=== PATIENT | male | born 1950 | race Caucasian/White ===

== ENCOUNTER 2017-05-09 10:10 | Emergency (ER) | payer OTHER ==
[2017-05-09 11:52] LABS: Basophils % (Auto) 0.2 % (0.0-1.8); Eosinophils % (Auto) 0.3 % (0.0-4.3); Hematocrit 47.6 % (35.5-45.6); Hemoglobin 15.4 gm/dl (11.8-15.2); Mean Corpuscular HGB Conc 32 % (32-34); Mean Corpuscular Hemoglobin 28 pg (28-32); Mean Corpuscular Volume 86 fl (84-94); Platelet Count 162 K/mm3 (140-440); Red Blood Count 5.55 M/mm3 (3.65-5.03); White Blood Count 7.9 K/mm3 (4.5-11.0)
[2017-05-09 12:07] LABS: Albumin 4.1 g/dL (3.9-5); Albumin/Globulin Ratio 1.1 %; BUN/Creatinine Ratio 12.3; Bilirubin,Total 0.7 mg/dL (0.1-1.2); Chloride 100.5 mmol/L (98-107); Potassium 3.8 mmol/L (3.6-5.0); Total Protein 7.8 g/dL (6.3-8.2)
[2017-05-09 12:48] LABS: Bilirubin,Urine NEG (Negative); Blood,Urine MOD (Negative); Ketones,Urine NEG (Negative); Leukocyte Esterase,Urine NEG (Negative); Mucus,Urine 1+ /HPF; Nitrite,Urine NEG (Negative); Urobilinogen,Urine < 2.0 mg/dL (<2.0)
--- NOTE | 2017-05-09 14:58 | Emergency Department Report ---
ED Abdominal Pain HPI - General Chief Complaint: Abdominal Pain Stated Complaint: PAIN IN LOWER ABD RT SIDE Time Seen by Provider: 05/09/17 14:52 Source: patient, RN notes reviewed Mode of arrival: Ambulatory Limitations: No Limitations - History of Present Illness Initial Comments: This is a 66-year-old male. He is previously unknown to me. He presents to the ER with resolved right flank and right lower quadrant pain. It started it 3 to 4:00 in the morning. It has since resolved. It had no exacerbating or relieving factors. The patient denies headache, neck pain, chest pain, shortness of breath, nausea, vomiting, testicular pain, irritative and obstructive urinary symptoms. MD Complaint: abdominal pain, flank pain -: Sudden Location: RLQ, R flank Severity scale (0 -10): 0 Consistency: now resolved Improves With: nothing Worsens With: nothing Associated Symptoms: denies other symptoms - Related Data Previous Rx's Medication Instructions Recorded Last Taken Type Ketorolac [Toradol] 10 mg PO Q6H PRN #20 tablet 05/09/17 Unknown Rx Ondansetron [Zofran Odt] 4 mg PO QID PRN #20 tab.rapdis 05/09/17 Unknown Rx Tamsulosin [Flomax] 0.4 mg PO QDAY #30 cap 05/09/17 Unknown Rx oxyCODONE [Roxicodone] 5 mg PO Q6HR PRN #15 tablet 05/09/17 Unknown Rx Allergies Allergy/AdvReac Type Severity Reaction Status Date / Time No Known Allergies Allergy Unverified 05/09/17 10:59 ED Review of Systems ROS: Stated complaint: PAIN IN LOWER ABD RT SIDE Other details as noted in HPI Constitutional: denies: fever Eyes: denies: vision change ENT: denies: epistaxis Respiratory: denies: cough Cardiovascular: denies: chest pain Gastrointestinal: abdominal pain Genitourinary: denies: testicular pain Musculoskeletal: denies: back pain Skin: denies: lesions Neurological: denies: weakness Psychiatric: denies: anxiety ED Past Medical Hx - Past Medical History Previous Medical History?: No - Surgical History Past Surgical History?: No - Social History Smoking Status: Never Smoker Substance Use Type: Alcohol - Medications Home Medications: Home Medications Medication Instructions Recorded Confirmed Last Taken Type Ketorolac [Toradol] 10 mg PO Q6H PRN #20 tablet 05/09/17 Unknown Rx Ondansetron [Zofran Odt] 4 mg PO QID PRN #20 tab.rapdis 05/09/17 Unknown Rx Tamsulosin [Flomax] 0.4 mg PO QDAY #30 cap 05/09/17 Unknown Rx oxyCODONE [Roxicodone] 5 mg PO Q6HR PRN #15 tablet 05/09/17 Unknown Rx ED Physical Exam - General Limitations: No Limitations General appearance: alert, in no apparent distress - Head Head exam: Present: atraumatic, normocephalic - Eye Eye exam: Present: normal appearance, EOMI. Absent: nystagmus - ENT ENT exam: Present: normal exam, normal orophraynx, mucous membranes moist, normal external ear exam - Neck Neck exam: Present: normal inspection, full ROM. Absent: tenderness, meningismus - Respiratory Respiratory exam: Present: normal lung sounds bilaterally. Absent: respiratory distress, wheezes, rales, rhonchi, stridor, chest wall tenderness, accessory muscle use, decreased breath sounds, prolonged expiratory - Cardiovascular Cardiovascular Exam: Present: regular rate, normal rhythm, normal heart sounds. Absent: systolic murmur, diastolic murmur, rubs, gallop - GI/Abdominal GI/Abdominal exam: Present: soft, normal bowel sounds. Absent: distended, tenderness, guarding, rebound, rigid, pulsatile mass - Rectal Rectal exam: Present: deferred - exam: Present: normal inspection. Absent: testicular tenderness External exam: Present: normal external exam, other (there is no testicular tenderness. There is normal testicular lie bilaterally. There is normal cremasteric reflex bilaterally.). Absent: erythema, swelling - Extremities Exam Extremities exam: Present: normal inspection, full ROM, normal capillary refill. Absent: tenderness, pedal edema, joint swelling, calf tenderness - Back Exam Back exam: Present: normal inspection, full ROM. Absent: tenderness, CVA tenderness (R), CVA tenderness (L), muscle spasm, paraspinal tenderness, vertebral tenderness - Neurological Exam Neurological exam: Present: alert, oriented X3, normal gait, other (Extraocular movements intact. Tongue midline. No facial droop. Facial sensation intact to light touch in the V1, V2, V3 distribution bilaterally. 5 and 5 strength in 4 extremities.. Sensation is intact to light touch in 4 extremities.). Absent : motor sensory deficit - Psychiatric Psychiatric exam: Present: normal affect, normal mood - Skin Skin exam: Present: warm, dry, intact, normal color. Absent: rash ED Course Vital Signs 05/09/17 05/09/17 05/09/17 10:59 14:53 17:04 Temperature 98.4 F 97.1 F L 98.2 F Pulse Rate 88 72 72 Respiratory 16 16 18 Rate Blood Pressure 170/95 Blood Pressure 169/94 130/70 [Left] O2 Sat by Pulse 98 99 98 Oximetry ED Medical Decision Making - Lab Data Result diagrams: 05/09/17 11:33 05/09/17 11:33 Vital Signs 05/09/17 05/09/17 10:59 14:53 Temperature 98.4 F 97.1 F L Pulse Rate 88 72 Respiratory 16 16 Rate Blood Pressure 170/95 Blood Pressure 169/94 [Left] O2 Sat by Pulse 98 99 Oximetry Laboratory Results - last 24 hr 05/09/17 05/09/17 05/09/17 11:33 11:33 11:45 WBC 7.9 RBC 5.55 H Hgb 15.4 H Hct 47.6 H MCV 86 MCH 28 MCHC 32 RDW 14.0 Plt Count 162 Lymph % (Auto) 22.7 [place] % (Auto) 7.1 Eos % (Auto) 0.3 Baso % (Auto) 0.2 Lymph # 1.8 [place] # 0.6 Eos # 0.0 Baso # 0.0 Seg Neutrophils % 69.7 Seg Neutrophils # 5.5 Sodium 140 Potassium 3.8 Chloride 100.5 Carbon Dioxide 27 Anion Gap 16 BUN 16 Creatinine 1.3 Estimated GFR 55 BUN/Creatinine Ratio 12.30 Glucose 105 H Calcium 9.0 Total Bilirubin 0.70 AST 20 ALT 16 Alkaline Phosphatase 48 Total Protein 7.8 Albumin 4.1 Albumin/Globulin Ratio 1.1 Lipase 26 Urine Color Yellow Urine Turbidity Clear Urine pH 6.0 Ur Specific [place] 1.031 H Urine Protein 30 mg/dl Urine Glucose (UA) Neg Urine Ketones Neg Urine Blood Mod Urine Nitrite Neg Urine Bilirubin Neg Urine Urobilinogen < 2.0 Ur Leukocyte Esterase Neg Urine WBC (Auto) 1.0 Urine RBC (Auto) 27.0 U Epithel Cells (Auto) < 1.0 Urine Mucus 1+ - Radiology Data Radiology results: report reviewed, image reviewed Noncontrast CT scan of the abdomen and pelvis: There is a 3 mm centrally obstructing right UVJ stone. No other hydronephrosis. The appendix is normal. other incidental findings. - Medical Decision Making Differential diagnosis: Renal colic, constipation, appendicitis Assessment and plan: 66-year-old male with resolved right lower quadrant and flank pain. He is afebrile, with reassuring vital signs with the exception of hypertension/elevated blood pressure. Laboratory studies demonstrate hematuria , and noncontrast CT scan of the abdomen and pelvis confirm the position of a 3 mm stone. The patient is afebrile, tolerating liquid feeds, and declines pain medication. He will be discharged with pain medication, nausea medication, medical expulsive therapy, instructions to follow up with outpatient primary care and urology. Return precautions are reviewed. Critical care attestation.: If time is entered above; I have spent that time in minutes in the direct care of this critically ill patient, excluding procedure time. ED Disposition Clinical Impression: Right flank pain Disposition: DC-01 TO HOME OR SELFCARE Is pt being admited?: No Does the pt Need Aspirin: No Condition: Stable Instructions: Kidney Stones (ED), Hypertension (ED) Additional Instructions: Take the pain medication, nausea medication, Flomax medication as directed. Follow up with a primary care doctor within the next month. Please note that blood pressure was elevated. This should be followed up by her primary care doctor within the recommended timeframe. Long-term complications of hypertension/elevated blood pressure includes stroke, heart attack, disability, , paralysis, loss of quality of life. Dr. Jamal Farrell is a local primary care doctor. CT scan demonstrated enlarged prostate, and right-sided kidney stone which is partially blocking the tube The kidney to the bladder. Follow-up with the urology specialist within the next [address] Bray is a local urology specialist. Return to the ER right away with new pain, worsened pain, migration of pain, fevers, chills, confusion, change in mental status, inability to tolerate liquid feeds. If taking the oxycodone for pain, do not drive, consume alcohol, or make important decisions. Follow-up with the primary care doctor or urology specialist for further outpatient prostate screening. Not following up as recommended, may result in an undiagnosed cancer/tumor/malignancy. Prescriptions: Ketorolac [Toradol] 10 mg PO Q6H PRN #20 tablet PRN Reason: Pain Ondansetron [Zofran Odt] 4 mg PO QID PRN #20 tab.rapdis PRN Reason: Nausea oxyCODONE [Roxicodone] 5 mg PO Q6HR PRN #15 tablet PRN Reason: Pain Tamsulosin [Flomax] 0.4 mg PO QDAY #30 cap Referrals: PRIMARY CARE, [Primary Care Provider] - 3-5 Days JAMAL FARRELL MD [Staff Physician] - 3-5 Days GREGG BRAY MD [Staff Physician] - 3-5 Days
--- NOTE | 2017-05-09 15:51 | Cat Scan Report ---
CT ABDOMEN AND PELVIS WITHOUT CONTRAST INDICATION: RLQ and flank abdominal pain. Appendicitis versus stone. COMPARISON: None similar at this institution. FINDINGS: Noncontrast abdomen and pelvis CT performed. LUNG BASES: Mild right lower lobe scarring. Borderline cardiomegaly. No effusions. Small left hilar calcification. Nonspecific distal esophageal wall prominence/thickening, not excluded for gastroesophageal reflux and/or hiatal hernia, amongst others. ABDOMEN: Please note that sensitivity to detect small visceral lesions is limited due to the absence of intravenous or oral contrast. Grossly unremarkable unenhanced liver, spleen, gallbladder, pancreas, adrenals, nonaneurysmal abdominal aorta and IVC. No ascites or significant adenopathy. Nonopacified GI tract evaluation limited, though grossly nonobstructive. Cecum somewhat positioned high in the right mid abdomen, though with a normal appendix. Few descending colon diverticuli. Fat-containing umbilical hernia with a transverse neck of 2 cm as on axial series 2, image 230 with subadjacent partially herniated nonobstructed small bowel. Kidneys demonstrate no radiopaque intracranial calculi or significant hydronephrosis. Right ureter though mildly prominent throughout its length. Right perinephric stranding. Left kidney unremarkable. PELVIS: Prominent right ureter leads to an approximately 3 mm right ureterovesical junction calculus, axial image 321. Mildly enlarged prostate creates an impression at the bladder base and may be correlated for clinically and with PSA. Few small pelvic phleboliths and minimal prostatic calcification. Grossly unremarkable seminal vesicles and rectosigmoid. No free fluid or significant adenopathy. Fat containing bilateral inguinal hernias measure approximately 2.5 cm. Mild degenerative changes along multiple spinal levels, hips and the right SI joint. CONCLUSION: 1. Approximately 3 mm slightly obstructing right ureterovesical junction calculus, as detailed above. No significant hydronephrosis. 2. Various other incidental findings, including at the lung bases, diverticulosis, umbilical and bilateral inguinal hernias, prominent prostate and a normal appendix, amongst others, as above. Thank you for the opportunity to participate in this patient's care.
[2017-05-09 17:06] VITALS: BP 130/70
== END 2017-05-09 17:07 | disposition home or self-care (01) ==
LOC: ED 10:10
DX: R10.31 Right lower quadrant pain (principal)
CPT/HCPCS: 36415; 74176; 80053; 81001; 83690; 85025